=== PATIENT | male | born 1985 | race Caucasian/White ===

== ENCOUNTER → 2016-05-09 | Emergency (ER) | payer OTHER ==
[~2016-05-09] MED LIST: FAMOTIDINE 20 MG/50 ML IVPB 50 ML IVPB ONE; MAG HYDROX/AL HYDROX/SIMETH 30 ML UNIT-DOSE CUP ONE; MAG HYDROX/AL HYDROX/SIMETH 30 ML UNIT-DOSE CUP PO ONE
[2016-05-09 07:18] VITALS: BP 158/98; PULSE 63; TEMP 98; BMI 27.7
--- NOTE | 2016-05-09 08:02 | PDOC ---
History of Present Illness - General Chief Complaint: Pain Stated Complaint: ABD PAIN, HEARTBURN Time Seen by Provider: 05/09/16 07:37 History Source: Patient Exam Limitations: No Limitations - History of Present Illness Initial Comments: 05/09/16 07:57 Patient is a 30 year old male with PMH of DVT (2013) on Coumadin who presents to ED with heartburn & epigastric pain for last 2 weeks. He states he was given Omeprazole at [facility] in February, which he has been taking with each meal but with only little improvement in symptoms. He states the last 2 weeks have been particularly difficult for him as the heartburn is now associated with epigastric pain, which is affecting his sleep. He states the heartburn is worse with food and exacerbated by laying down. He used to take NSAIDS (namely, Tramadol) for chronic back pain but has been using Tylenol instead for some time. Believes he was diagnosed with H Pylori 4 years ago which "went away with medication". Had an endoscopy around the same time. He denies any nausea, vomiting, fever or chills. Denies bloody or dark stools. Denies headache, chest pain, shortness of breath, palpitation, SOB, diarrhea or constipation. Past History - Travel Traveled outside of the country in the last 30 days: No Close contact w/someone who was outside of country & ill: No - Past Medical History Allergies/Adverse Reactions: Allergies Allergy/AdvReac Type Severity Reaction Status Date / Time No Known Allergies Allergy Verified 05/09/16 07:12 Home Medications: Ambulatory Orders Famotidine [Pepcid] 40 mg PO BID #28 tablet 05/09/16 Warfarin Sodium [Coumadin] 7.5 mg PO 05/09/16 Other medical history: hx dvt l leg - Family Disease History Comment:: 05/09/16 08:00 none noted - Psycho/Social/Smoking Cessation Hx Anxiety: No Suicidal Ideation: No Smoking Status: No Smoking History: Never smoked Hx Alcohol Use: No Drug/Substance Use Hx: No Substance Use Type: None Review of Systems - Review of Systems Able to Perform ROS?: Yes Is the patient limited Y[place]ut proficient: No Constitutional: No: Chills, Fever, Malaise, Night Sweats HEENTM: No: Blurred Vision, Double Vision, Tinnitus, Throat Pain, Throat Swelling Respiratory: No: Cough, Shortness of Breath, Wheezing Cardiac (ROS): No: Chest Pain, Irregular Heart Rate, Lightheadedness, Palpitations ABD/GI: Yes: Other (heartburn, abdominal pain). No: Blood Streaked Bowels, Constipated, Diarrhea, Nausea, Rectal Bleeding, Vomiting Musculoskeletal: Yes: Back Pain Neurological: No: Headache, Numbness, Paresthesia, Weakness, Dizziness Psychiatric: No: Anxiety, Depression All Other Systems: Reviewed and Negative *Physical Exam - Vital Signs Last Vital Signs Temp Pulse Resp BP Pulse Ox 98.0 F 63 20 158/98 100 05/09/16 07:09 05/09/16 07:09 05/09/16 07:09 05/09/16 07:09 05/09/16 07:09 - Physical Exam General Appearance: Yes: Nourished, Appropriately Dressed HEENT: positive: EOMI, SRAVAN, Normal ENT Inspection Neck: positive: Trachea midline, Normal Thyroid, Supple Respiratory/Chest: positive: Lungs Clear, Normal Breath Sounds Cardiovascular: positive: Regular Rhythm, Regular Rate, S1, S2 Gastrointestinal/Abdominal: positive: Normal Bowel Sounds, Tender (mildly tender to palpation in central abdomen, without radiation), Soft Musculoskeletal: positive: Normal Inspection Extremity: positive: Normal Inspection, Normal Range of Motion Integumentary: positive: Normal Color, Dry, Warm Neurologic: positive: Fully Oriented, Alert, Normal Mood/Affect, Motor Strength 5/5 ED Treatment Course - LABORATORY CBC & Chemistry Diagram: 05/09/16 09:25 05/09/16 09:25 Medical Decision Making - Medical Decision Making 05/09/16 08:04 Ordered Pepcid & Maalox for symptom relief. CBC, CMP, Lipase, PT/INR ordered as well. Differentials include gastritis, GERD, PUD & pancreatitis. 05/09/16 10:05 Abdominal pain resolved with Pepcid & Maalox. Patient is instructed to f/u with GI specialist LAUREN to schedule likely endoscopy & further workup for GERD. Prescribed Pepcid for symptom relief as he states it works better for him than Omeprazole. Patient instructed to return to ED immediately if pain worsens, bleeding noted ins tool or light-headedness occurs. *DC/Admit/Observation/Transfer Diagnosis at time of Disposition: Gastritis - Discharge Dispostion Condition at time of disposition: Improved Admit: No - Prescriptions Prescriptions: Famotidine [Pepcid] 40 mg PO BID #28 tablet - Referrals Referrals: STAFF,NOT ON [Primary Care Provider] - Miguel Alvarez MD [Staff Physician] - Call tomorrow - Patient Instructions Printed Discharge Instructions: Gastritis, [place] Diet Additional Instructions: Followup with GI specialist as soon as possible to schedule further workup of your symptoms. Low fat diet, low dairy as well. Do not eat before bed. If pain worsens, you become lightheaded or you find blood in your stool, come back to ER immediately.
--- NOTE | 2016-05-09 08:39 | PDOC ---
Attending Attestation - Resident Resident Name: Jarod Travis - ED Attending Attestation I have performed the following: I have examined & evaluated the patient, The case was reviewed & discussed with the resident, I agree w/resident's findings & plan, Exceptions are as noted - HPI HPI: 05/09/16 08:37 30-year-old male with history of gastritis, likely H. pylori based on his recollection of an endoscopy performed at age 24, presents with persistent epigastric pain despite being placed on PPI 2 months ago by his clinic physician at [facility]. No nausea or vomiting or bloody stool, no fevers or chills. - Physicial Exam PE: 05/09/16 08:37 Vital signs normal. Generally well-appearing, well-hydrated, no jaundice or pallor Epigastric discomfort to palpation without guarding or rebound, soft/ nondistended. - Medical Decision Making 05/09/16 08:38 Patient seen and evaluated with the resident. I agree with the overall evaluation, assessment, and management with the following summary of visit: 30-year-old male on Coumadin for history of DVT and history of gastritis presents with likely acute gastritis, rule out biliary or pancreatic etiology. No acute peritoneal findings, hemodynamically stable. Check labs Trial of Pepcid and Maalox IV fluids Reassess, will need GI referral for repeat endoscopy
[2016-05-09 09:32] LABS: BASOPHIL 1.1 % (0-2.0); EOSINOPHIL 0.8 % (0-4.5); MCH 28.5 pg (25.7-33.7); MCHC 33.2 g/dl (32.0-35.9); MEAN CELL VOLUME 85.7 fl (80-96); MEAN PLT VOLUME 8.4 fl (7.5-11.1); NEUTROPHILS 40.7 % (42.8-82.8); PLATELET COUNT 187 K/MM3 (134-434); RDW 13.3 % (11.9-15.9); WHITE BLOOD COUNT 3.3 K/mm3 (4.0-10.0)
[2016-05-09 09:44] LABS: INR 2.17 (0.82-1.09); PROTHROMBIN TIME (PATIENT) 24.3 SEC (9.98-11.88)
[2016-05-09 09:57] LABS: ALK PHOS 57 U/L (45-117); ANION GAP 6 (8-16); BILIRUBIN,TOTAL 0.4 mg/dL (0.2-1.0); CALCIUM 8.9 mg/dL (8.5-10.1); CO2 27 mmol/L (21-32); CREATININE 1.1 mg/dL (0.7-1.3); GLUCOSE,RANDOM 89 mg/dL (74-106); SGOT/AST 27 U/L (15-37); SGPT/ALT 33 U/L (12-78); TOT PROT 7.3 g/dl (6.4-8.2)
== END | disposition home or self-care (01) ==
LOC: JER 07:04
PROC: 3E033GC Introduction of Other Therapeutic Substance into Peripheral Vein, Percutaneous Approach (ICD-10-PCS; principal; 2016-05-09)
DX: K52.9 Noninfective gastroenteritis and colitis, unspecified (principal); Z86.718 Personal history of other venous thrombosis and embolism; Z79.01 Long term (current) use of anticoagulants
CPT/HCPCS: 36415; 80053; 83690; 85025; 85610; 96365; 99282-25

== ENCOUNTER 2018-01-17 07:06 | Emergency (ER) | payer OTHER ==
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
[2018-01-17] MEDS ORDERED: ACETAMINOPHEN 500 MG TABLET (FP) PO ONE (07:36)
[2018-01-17 08:01] VITALS: BMI 28.0
[2018-01-17] MEDS ORDERED: ACETAMINOPHEN 325 MG TABLET (FP) ONE (08:10)
[2018-01-17] MEDS ORDERED: CYCLOBENZAPRINE HCL 10 MG TABLET (FP) PO ONE (09:36)
[2018-01-17] MEDS ORDERED: CYCLOBENZAPRINE HCL 10 MG TABLET (FP) ONE (10:42)
[2018-01-17 11:24] VITALS: BP 121/78; PULSE 60; TEMP 97.6
== END 2018-01-17 11:40 | disposition home or self-care (01) ==
LOC: JER 07:06
DX: M54.2 Cervicalgia (principal); R51 Headache; V44.0XXA Car driver injured in collision with heavy transport vehicle or bus in nontraffic accident, initial encounter; Y92.414 Local residential or business street as the place of occurrence of the external cause; Y93.89 Activity, other specified; Y99.8 Other external cause status; Z86.718 Personal history of other venous thrombosis and embolism; Z79.01 Long term (current) use of anticoagulants
CPT/HCPCS: 70450-TC; 72125-TC; 99282-25

== ENCOUNTER 2022-04-23 22:34 | Emergency (ER) | payer OTHER ==
[2022-04-23 22:46] VITALS: BP 113/79; PULSE 61; RESP 18; TEMP 98.4; BMI 28.8
== END 2022-04-24 00:32 | disposition home or self-care (01) ==
LOC: JER 22:34
DX: U07.1 COVID-19 (principal)
CPT/HCPCS: 0241U-QW; 99283-25

== ENCOUNTER 2022-11-20 10:12 | Emergency (ER) | payer OTHER ==
[2022-11-20 10:23] VITALS: BP 129/79; PULSE 102; RESP 14; TEMP 100.4; BMI 28.9
[2022-11-20] MEDS ORDERED: IBUPROFEN 600 MG TABLET (FP) PO ONE ×2 (10:55→11:14)
[2022-11-20] MEDS ORDERED: DEXAMETHASONE 4 MG TABLET (FP) PO ONE (11:00)
[2022-11-20] MEDS ORDERED: AMOXICILLIN 500 MG CAPSULE (FP) PO ONE (11:07)
[2022-11-20] MEDS ORDERED: AMOXICILLIN 250 MG CAPSULE ONE (11:13)
[2022-11-20] MEDS ORDERED: DEXAMETHASONE SOD PHOSPHATE 10 MG/1 ML VIAL ONE (11:14)
== END 2022-11-20 11:16 | disposition home or self-care (01) ==
LOC: JER 10:12 → JERFT 10:12
DX: J02.0 Streptococcal pharyngitis (principal); R50.9 Fever, unspecified; R13.10 Dysphagia, unspecified; R63.30 Feeding difficulties, unspecified; M54.9 Dorsalgia, unspecified; M54.2 Cervicalgia; M79.10 Myalgia, unspecified site; R51.9 Headache, unspecified; Z20.822 Contact with and (suspected) exposure to COVID-19
CPT/HCPCS: 0241U-QW; 87651; 99283-25

== ENCOUNTER 2023-01-16 21:43 | Emergency (ER) | payer OTHER ==
[2023-01-16 21:49] VITALS: BP 129/80; PULSE 61; RESP 18; TEMP 97.5; BMI 28.0
[2023-01-17] MEDS ORDERED: CEPHALEXIN MONOHYDRATE 500 MG CAPSULE (UD) ONE (00:42)
[2023-01-17] MEDS ORDERED: SULFAMETHOXAZOLE/TRIMETHOPRIM 800MG/160MG D.S. TABLET ONE (00:42)
[2023-01-17] MEDS ORDERED: CEPHALEXIN MONOHYDRATE 500 MG CAPSULE (UD) PO ONE (00:56)
[2023-01-17] MEDS ORDERED: SULFAMETHOXAZOLE/TRIMETHOPRIM 800MG/160MG D.S. TABLET PO ONE (00:57)
== END 2023-01-17 00:59 | disposition home or self-care (01) ==
LOC: JER 21:43 → JERFT 21:43 → JER 01-17 00:59
DX: L02.31 Cutaneous abscess of buttock (principal); B35.9 Dermatophytosis, unspecified
CPT/HCPCS: 99283-25

== ENCOUNTER 2023-01-18 09:58 | Emergency (ER) | payer OTHER ==
[2023-01-18 10:06] VITALS: BP 112/70; PULSE 63; RESP 17; TEMP 98.1; BMI 28.5
== END 2023-01-18 12:05 | disposition home or self-care (01) ==
LOC: JERFT 09:58
DX: L02.31 Cutaneous abscess of buttock (principal); Z48.01 Encounter for change or removal of surgical wound dressing
CPT/HCPCS: 99282-25

== ENCOUNTER 2023-01-31 12:30 | Emergency (ER) | payer OTHER ==
[2023-01-31 12:44] VITALS: BP 119/78; PULSE 65; RESP 18; TEMP 98; BMI 28.5
[2023-01-31] MEDS ORDERED: MECLIZINE HCL 12.5 MG TABLET PO ONE (13:05)
[2023-01-31] MEDS ORDERED: SODIUM CHLORIDE 0.9% 500 ML INFUS.BAG IV ONE (13:05)
[2023-01-31] MEDS ORDERED: ACETAMINOPHEN 1000 MG/100 ML BAG IVPB ONE (13:05)
[2023-01-31] MEDS ORDERED: ACETAMINOPHEN INJECTION 100 ML IVPB ONE (13:11)
[2023-01-31] MEDS ORDERED: MECLIZINE HCL 12.5 MG TABLET ONE (13:11)
[2023-01-31 13:42] LABS: BASO % 0.7 % (0-2.0); EOS % 1.1 % (0-4.5); HEMATOCRIT 43.2 % (35.4-49); HEMOGLOBIN 14.9 GM/dL (11.7-16.9); LYMPH % 46.2 % (8-40); MCH 29.5 pg (25.7-33.7); MCHC 34.5 g/dl (32.0-35.9); MEAN CELL VOLUME 85.6 fl (80-96); MEAN PLT VOLUME 9.1 fl (7.5-11.1); MONO % 9.4 % (3.8-10.2); NEUT % 42.6 % (42.8-82.8); PLATELET COUNT 270 10^3/uL (134-434); RBC 5.05 M/mm3 (4.00-5.60); RDW 13.7 % (11.9-15.9); WHITE BLOOD COUNT 3.4 K/mm3 (4.0-10.0)
[2023-01-31 13:59] LABS: POTASSIUM 5.5 mmol/L (3.5-5.1)
[2023-01-31 14:02] LABS: ALBUMIN 3.9 g/dl (3.4-5.0); CALCIUM 8.8 mg/dL (8.5-10.1)
[2023-01-31 14:03] LABS: BLOOD UREA NITROGEN 12.7 mg/dL (7-18); MAGNESIUM 1.8 mg/dL (1.8-2.4)
[2023-01-31 14:05] LABS: CREATININE 1.1 mg/dL (0.55-1.3)
[2023-01-31 14:07] LABS: BILIRUBIN,TOTAL 0.5 mg/dL (0.2-1); TOT PROT 8.1 g/dl (6.4-8.2)
[2023-01-31 15:40] LABS: POTASSIUM 4.4 mmol/L (3.5-5.1)
[2023-01-31 15:41] LABS: CALCIUM 8.6 mg/dL (8.5-10.1)
[2023-01-31 15:42] LABS: BLOOD UREA NITROGEN 12.2 mg/dL (7-18)
[2023-01-31 15:46] LABS: CREATININE 1.1 mg/dL (0.55-1.3)
== END 2023-01-31 16:25 | disposition home or self-care (01) ==
LOC: JER 12:30
PROC: 3E033NZ Introduction of Analgesics, Hypnotics, Sedatives into Peripheral Vein, Percutaneous Approach (ICD-10-PCS; principal; 2023-01-31)
DX: R94.31 Abnormal electrocardiogram [ECG] [EKG] (principal); R42 Dizziness and giddiness; R20.2 Paresthesia of skin; R51.9 Headache, unspecified; Z20.822 Contact with and (suspected) exposure to COVID-19
CPT/HCPCS: 0241U-QW; 36415; 70450-TC; 71045-TC-FY; 80048; 80053; 83735; 84484; 85025; 93005; 93010; 96374; 99285-25

== ENCOUNTER 2023-04-23 17:05 | Emergency (ER) | payer OTHER ==
[2023-04-23 17:23] VITALS: BP 121/73; PULSE 70; RESP 18; TEMP 98; BMI 27.6
[2023-04-23] MEDS ORDERED: ACETAMINOPHEN 1000 MG/100 ML BAG IVPB ONE (18:15)
[2023-04-23] MEDS ORDERED: ACETAMINOPHEN INJECTION 100 ML IVPB ONE (18:25)
[2023-04-23 18:42] LABS: PH,URINE 5.5 (5.0-8.0); URINE APPEARANCE CLEAR; URINE BILIRUBIN NEGATIVE (NEGATIVE); URINE COLOR YELLOW; URINE GLUCOSE (UA) NEGATIVE (NEGATIVE); URINE KETONE NEGATIVE (NEGATIVE); URINE LEUK ESTERASE NEGATIVE (NEGATIVE); URINE NITRITE NEGATIVE (NEGATIVE); URINE PROTEIN NEGATIVE (NEGATIVE); URINE UROBILINOGEN 0.2 mg/dL (0.2-1.0)
[2023-04-23 18:42] LABS: BASO % 0.5 % (0-2.0); EOS % 1.5 % (0-4.5); HEMATOCRIT 42.7 % (35.4-49); HEMOGLOBIN 13.9 GM/dL (11.7-16.9); LYMPH % 37.8 % (8-40); MCH 28.5 pg (25.7-33.7); MCHC 32.6 g/dl (32.0-35.9); MEAN CELL VOLUME 87.4 fl (80-96); MEAN PLT VOLUME 8.3 fl (7.5-11.1); MONO % 10.1 % (3.8-10.2); NEUT % 50.1 % (42.8-82.8); PLATELET COUNT 219 10^3/uL (134-434); RBC 4.89 M/mm3 (4.00-5.60); RDW 14.3 % (11.9-15.9); WHITE BLOOD COUNT 4.7 K/mm3 (4.0-10.0)
[2023-04-23 18:48] LABS: INR 1.38 (0.83-1.09)
[2023-04-23 18:57] LABS: POTASSIUM 3.8 mmol/L (3.5-5.1)
[2023-04-23 19:00] LABS: ALBUMIN 3.7 g/dl (3.4-5.0); BLOOD UREA NITROGEN 14.4 mg/dL (7-18)
[2023-04-23 19:03] LABS: CREATININE 1.1 mg/dL (0.55-1.3)
[2023-04-23 19:04] LABS: TOT PROT 7.1 g/dl (6.4-8.2)
[2023-04-23 19:05] LABS: BILIRUBIN,TOTAL 0.3 mg/dL (0.2-1)
[2023-04-23] MEDS ORDERED: KETOROLAC TROMETHAMINE 30 MG/1 ML VIAL IVPUSH ONE (21:36)
[2023-04-23] MEDS ORDERED: KETOROLAC TROMETHAMINE 15 MG/ML VIAL ONE (21:44)
== END 2023-04-23 23:01 | disposition home or self-care (01) ==
LOC: JER 17:05
PROC: 3E033NZ Introduction of Analgesics, Hypnotics, Sedatives into Peripheral Vein, Percutaneous Approach (ICD-10-PCS; principal; 2023-04-23)
PROC: 3E0333Z Introduction of Anti-inflammatory into Peripheral Vein, Percutaneous Approach (ICD-10-PCS; 2023-04-23)
DX: R10.32 Left lower quadrant pain (principal); S39.011A Strain of muscle, fascia and tendon of abdomen, initial encounter; X50.0XXA Overexertion from strenuous movement or load, initial encounter
CPT/HCPCS: 36415; 74177-TC; 80053; 81003; 85025; 85610; 85730; 86850; 86900; 86901; 87086; 96374; 96375; 99285-25; Q9967